=== PATIENT | male | born 1955 | race Caucasian/White ===

== ENCOUNTER → 2016-12-28 | Outpatient (CLI) | payer OTHER ==
--- NOTE | 2016-12-28 11:44 | RADRPT ---
EXAM DATE/TIME: 12/28/2016 11:30 [place] COMPARISON: No previous studies available for comparison. INDICATIONS : Right hip pain, no known injury. MEDICAL HISTORY : None. SURGICAL HISTORY : None. ENCOUNTER: Initial ACUITY: 1 month PAIN SCORE: 10/05 LOCATION: Right hip FINDINGS: A two view examination of the right hip was performed. The primary and secondary trabecular pattern of the femoral neck is intact. The hip joint is of normal width without significant sclerosis or bon y hypertrophy. The acetabulum is grossly intact. CONCLUSION: Unremarkable examination of the right hip. Milton Glasgow MD on December 28, 2016 at 11:42 Board Certified Radiologist. This report was verified electronically.
== END ==
LOC: HRAD 10:51
DX: R10.30 Lower abdominal pain, unspecified (principal)
CPT/HCPCS: 73502